=== PATIENT | male | born 1985 | race Caucasian/White ===

== ENCOUNTER 2017-05-14 06:59 | Day surgery (SDC) | payer OTHER ==
[2017-05-11 08:38] VITALS: BP 125/86
[2017-05-11 09:07] LABS: BASOPHILS # (AUTO) 0.04 x10^3/uL (0-0.1); BASOPHILS % (AUTO) 1 % (0-1); EOSINOPHILS # (AUTO) 0.15 x10^3/uL (0-0.4); EOSINOPHILS % (AUTO) 2 % (1-7); LYMPHOCYTES # (AUTO) 2.33 x10^3/uL (1-3.4); LYMPHOCYTES % (AUTO) 33 % (22-44); MD NO; MEAN CORPUSCULAR HGB CONC 34.6 g/dL (33.2-36.2); MEAN CORPUSCULAR VOLUME 86.7 fL (81-97); MEAN PLATELET VOLUME 8.3 fL (7.4-10.4); MONOCYTES % (AUTO) 4 % (2-9); NEUTROPHILS % (AUTO) 60 % (42-75); PLATELET COUNT 205 x10^3/uL (130-400); RED BLOOD COUNT 5.21 x10^6/uL (4.38-5.82); RED CELL DISTRIBUTION WIDTH 13.2 % (9.4-14.8)
[~2017-05-14] VITALS: Ht 188 cm; Wt 86.0 kg
[~2017-05-14 06:59] MED LIST: D ME PO; GUAI12009 PO; VENL37.57 PO
[2017-05-14] MEDS ORDERED: LACTATED RINGERS 1,000 ML IV SCH (07:42)
[2017-05-14] MEDS ORDERED: LIDOCAINE 1%, 2ML SQ PRN (08:00)
[2017-05-14] MEDS ORDERED: PROPOFOL 10 MG/ML, 20ML ONE (08:31)
[2017-05-14] MEDS ORDERED: PROPOFOL 10 MG/ML, 50ML ONE (08:31)
== END 2017-05-14 10:40 ==
LOC: OUT 06:59
PROVIDERS: ATTEND Surgery
DX: K63.5 Polyp of colon (principal); F32.9 Major depressive disorder, single episode, unspecified; E78.00 Pure hypercholesterolemia, unspecified
CPT/HCPCS: 36415; 45380; 85025; 88305; J2704